=== PATIENT | male | born 1975 | race Caucasian/White ===

== ENCOUNTER 2018-10-29 09:23 | Emergency (ER) | payer OTHER ==
[2018-10-29] MEDS ORDERED: NS 0.9% 1000 ML** 1,000 ML IV ONE (09:43)
[2018-10-29] MEDS ORDERED: Famotidine IV* 10 MG/ML 2 ML (20 mg) IV SLOW PU ONE (09:44)
[2018-10-29] MEDS ORDERED: Al Hydrox/Mg Hydrox/Simet LIQ* 30 ML UDC PO ONE (09:44)
[2018-10-29] MEDS ORDERED: Ondansetron INJ* 2 MG/ML VIAL IV ONE (09:49)
[2018-10-29] MEDS ORDERED: Morphine 4 MG/ML VIAL (1 ml) 4 MG/ML VIAL IV ONE (09:49)
[2018-10-29 10:01] LABS: Hematocrit 48 % (42-52); Hemoglobin 16.7 g/dL (14.0-18.0); Mean Corpuscular HGB Conc 35 g/dL (31-36); Mean Corpuscular Hemoglobin 31 pg (27-31); Mean Corpuscular Volume 89 fL (80-94); Mean Platelet Volume 7.8 fL (7.4-10.4); Platelet Count 325 10^3/uL (150-450); Red Blood Count 5.39 10^6 /uL (4.18-5.48); Red Cell Distribution Width 14 % (10-15); White Blood Count 19.2 10^3/uL (3.5-10.8)
[2018-10-29 10:21] LABS: ABS Basophils 0.1 10^3/ul (0-0.2); ABS Eosinophils 0.2 10^3/ul (0-0.6); ABS Lymphocytes 3.1 10^3/ul (1.0-4.8); ABS Monocytes 1.7 10^3/ul (0-0.8); ABS Neutrophils 14.2 10^3/ul (1.5-7.7); Lymphocyte % 16.2 %; Nucleated Red Blood Cells % 0.1
[2018-10-29 10:24] LABS: Albumin 4.3 g/dL (3.2-5.2); Albumin/Globulin Ratio 1.5 (1-3); BUN/Creatinine Ratio 12.5 (8-20); C Reactive Protein 76.31 mg/L (<8.01); Calcium 10.1 mg/dL (8.6-10.3); EGFR African American 104.4 (>60); EGFR Non-African American 86.3 (>60); Globulin 2.8 g/dL (2-4); Magnesium 1.9 mg/dL (1.9-2.7); Potassium 3.7 mmol/L (3.5-5.0); Total Bilirubin 0.8 mg/dL (0.2-1.0); Total Protein 7.1 g/dL (6.4-8.9)
[2018-10-29] MEDS ORDERED: Iohexol 300* (CONTRAST) 10 ML SDV IV ONE (11:06)
--- NOTE | 2018-10-29 13:06 | ED ---
Abdominal Pain/Male - HPI Summary HPI Summary: This patient is a 43-year-old male who is otherwise healthy presenting to the ED with bilateral lower quadrant pain worse to the RLQ since last evening after eating. He states the pain has remained persistent. He states he is also having some diaphoresis since the discomfort. He has had Gas-X and Pepto- Bismol with no relief. He states he feels bloated with consistent ache to the bilateral lower quadrants. Denies any nausea or vomiting. Denies any constipation or diarrhea. Last BM was this morning and was loose. Denies any fevers or chills. Denies abdominal surgeries, CP or SOB. Sxs are worse with sitting upright and better with lying flat. No radiation of pain. - History of Current Complaint Chief Complaint: EDAbdPain Stated Complaint: ABD PAIN Time Seen by Provider: 10/29/18 09:43 Hx Obtained From: Patient Onset/Duration: Sudden Onset Timing: Constant Severity Initially: Moderate Severity Currently: Moderate Pain Intensity: 8 Pain Scale Used: 0-10 Numeric Location: Discrete At: RLQ Radiates: No Character: Sharp, Cramping Aggravating Factor(s): Nothing Alleviating Factor(s): Nothing Associated Signs And Symptoms: Positive: Negative - Risk Factors Testicular Torsion: Negative Cardiac Risk Factors: Negative - Allergies/Home Medications Allergies/Adverse Reactions: Allergies Allergy/AdvReac Type Severity Reaction Status Date / Time No Known Allergies Allergy Verified 10/29/18 09:42 PMH/Surg Hx/FS Hx/Imm Hx Previously Healthy: Yes Endocrine/Hematology History: Denies: Hx Diabetes Cardiovascular History: Denies: Hx Hypertension - Immunization History Hx Pertussis Vaccination: No Immunizations Up to Date: Yes Infectious Disease History: No Infectious Disease History: Denies: Traveled Outside the [place] in Last 30 Days - Social History Occupation: Employed Full-time Lives: With Family Alcohol Use: Weekly Hx Substance Use: Yes Substance Use Type: Reports: Marijuana Substance Use Comment - Amount & Last Used: daily Smoking Status (MU): Current Every Day Smoker Review of Systems Constitutional: Negative Cardiovascular: Negative Respiratory: Negative Positive: Abdominal Pain. Negative: Vomiting, Diarrhea, Nausea Genitourinary: Negative Positive: no symptoms reported, see HPI Musculoskeletal: Negative Skin: Negative All Other Systems Reviewed And Are Negative: Yes Physical Exam Triage Information Reviewed: Yes Vital Signs On Initial Exam: Initial Vitals Temp Pulse Resp BP Pulse Ox 97.6 F 77 18 146/100 99 10/29/18 09:39 10/29/18 09:39 10/29/18 09:39 10/29/18 09:39 10/29/18 09:39 Vital Signs Reviewed: Yes Appearance: Positive: Well-Appearing, Well-Nourished Skin: Positive: Warm, Skin Color Reflects Adequate Perfusion Head/Face: Positive: Normal Head/Face Inspection Eyes: Positive: EOMI, GUY, Conjunctiva Clear Neck: Positive: Supple, No Lymphadenopathy Respiratory/Lung Sounds: Positive: Clear to Auscultation, Breath Sounds Present Cardiovascular: Positive: RRR, Pulses are Symmetrical in both Upper and Lower Extremities Abdomen Description: Positive: Other: - RLQ pain Neurological: Positive: Alert, Oriented to Person Place, Time, Speech Normal Psychiatric: Positive: Affect/Mood Appropriate Diagnostics - Vital Signs Vital Signs Temp Pulse Resp BP Pulse Ox 10/29/18 10:12 66 20 141/95 99 10/29/18 10:06 62 13 99 10/29/18 09:59 22 10/29/18 09:39 97.6 F 77 18 146/100 99 - Laboratory Lab Results: Lab Results 10/29/18 10/29/18 10/29/18 Range/Units 09:52 09:52 09:52 WBC 19.2 H (3.5-10.8) 10^3/uL RBC 5.39 (4.18-5.48) 10^6 /uL Hgb 16.7 (14.0-18.0) g/dL Hct 48 (42-52) % MCV 89 (80-94) fL MCH 31 (27-31) pg MCHC 35 (31-36) g/dL RDW 14 (10-15) % Plt Count 325 (150-450) 10^3/uL MPV 7.8 (7.4-10.4) fL Neut % (Auto) 73.7 % Lymph % (Auto) 16.2 % [place] % (Auto) 8.7 % Eos % (Auto) 1.0 % Baso % (Auto) 0.4 % Absolute Neuts (auto) 14.2 H (1.5-7.7) 10^3/ul Absolute Lymphs (auto) 3.1 (1.0-4.8) 10^3/ul Absolute Monos (auto) 1.7 H (0-0.8) 10^3/ul Absolute Eos (auto) 0.2 (0-0.6) 10^3/ul Absolute Basos (auto) 0.1 (0-0.2) 10^3/ul Absolute Nucleated RBC 0.0 10^3/ul Nucleated RBC % 0.1 Sodium 138 (135-145) mmol/L Potassium 3.7 (3.5-5.0) mmol/L Chloride 109 (101-111) mmol/L Carbon Dioxide 22 (22-32) mmol/L Anion Gap 7 (2-11) mmol/L BUN 12 (6-24) mg/dL Creatinine 0.96 (0.67-1.17) mg/dL Est GFR ( Amer) 104.4 (>60) Est GFR (Non-Af Amer) 86.3 (>60) BUN/Creatinine Ratio 12.5 (8-20) Glucose 114 H (70-100) mg/dL Lactic Acid 1.1 (0.5-2.0) mmol/L Calcium 10.1 (8.6-10.3) mg/dL Magnesium 1.9 (1.9-2.7) mg/dL Total Bilirubin 0.80 (0.2-1.0) mg/dL AST 18 (13-39) U/L ALT 23 (7-52) U/L Alkaline Phosphatase 75 (34-104) U/L C-Reactive Protein 76.31 H (<8.01) mg/L Total Protein 7.1 (6.4-8.9) g/dL Albumin 4.3 (3.2-5.2) g/dL Globulin 2.8 (2-4) g/dL Albumin/Globulin Ratio 1.5 (1-3) Amylase 102 (29-103) U/L Lipase 41 (11.0-82.0) U/L Result Diagrams: 10/29/18 09:52 10/29/18 09:52 Lab Statement: Any lab studies that have been ordered have been reviewed, and results considered in the medical decision making process. Abdominal Pain Male Course/Dx - Course Course Of Treatment: During this course of treatment, the patient is evaluated for bilateral lower quadrant pain worse to the RLQ. He states symptoms began last evening immediately following dinner and have remained constant since that time. He has been taking Gas-X and Maalox without relief. He has never had this pain before. Symptoms are worse with sitting upright and better with lying flat. He has not eaten anything since yesterday due to discomfort. Labs were obtained which show a 19,000 white count with a left shift of 14,000 neutrophils. CRP is elevated at 76. With a concern for a appendicitis, CT was ordered. CT abdomen/pelvis with oral and IV contrast was obtained which shows: Focal wall thickening of the cecum just cranial to the ileocecal valve. Inflammatory changes are noted. There appears to be a diverticula noted in this area. Findings are consistent with an inflammatory process such as diverticulitis or epiploic appendigitis. Underlying neoplasm is not totally excluded. No abscesses noted. Follow-up exam suggested. Normal caliber appendix. Discussed findings with the patient and he is encouraged to follow up with [facility] in one week for further evaluation and to assure resolution of the diverticulitis. He is given ciprofloxacin 500 mg twice daily 7 days and Flagyl 3 times daily 7 days. He is also given pain control with tramadol as well as Zofran for any nausea. [facility] follow-up referral is given. - Diagnoses Differential Diagnosis/HQI/PQRI: Appendicitis Provider Diagnoses: Diverticulitis Discharge - Sign-Out/Discharge Documenting (check all that apply): Patient Departure Patient Received Moderate/Deep Sedation with Procedure: No - Discharge Plan Condition: Stable Disposition: HOME Prescriptions: Ciprofloxacin TAB* [Cipro 500 MG TAB*] 500 mg PO BID #14 tab metroNIDAZOLE [Flagyl 500 MG TAB] 500 mg PO TID #21 tab Ondansetron ODT TAB* [Zofran 4 MG Odt TAB*] 4 mg PO Q6H PRN #12 tab.odt MDD 4 PRN Reason: Nausea traMADol TAB* [Ultram*] 50 mg PO Q8H PRN #12 tab MDD 2 PRN Reason: Pain Patient Education Materials: Diverticulosis (ED), Diverticulitis Diet (ED) Referrals: No Primary Care Phys,NOPCP [Primary Care Provider] - [facility] [Outside] Additional Instructions: Eat a bland diet Drink plenty of fluids eat small meals at a time Metronidazole three times daily x 7 days Ciprofloxacin twice daily x 7 days Zofran as needed for nausea Tramadol up to three times daily for pain You may also take tylenol up to three times daily as needed for pain as well - Billing Disposition and Condition Condition: STABLE Disposition: Home
[2018-10-29 13:21] VITALS: BP 151/101
== END 2018-10-29 13:20 | disposition home or self-care (01) ==
LOC: ED 09:23
DX: K57.92 Diverticulitis of intestine, part unspecified, without perforation or abscess without bleeding (principal); F17.210 Nicotine dependence, cigarettes, uncomplicated
CPT/HCPCS: 36415; 74177; 80053; 82150; 83605; 83690; 83735; 85025; 86140; 96361; 96374; 96375; 99284; J2270; J2405; Q9967

== ENCOUNTER 2018-11-15 15:05 | Emergency (ER) | payer OTHER ==
[2018-11-15 15:11] VITALS: BP 170/111
--- NOTE | 2018-11-15 15:23 | UC ---
Dental HPI - HPI Summary HPI Summary: 46-year-old male presents with complaints of dental pain. States he has a known right lower molar with severe decay. Last night he was eating a piece of steak and heard something pop. Had sudden severe pain that has persisted since that time. States he took 400 mg of ibuprofen and tramadol 50 mg this morning with no relief from the pain. He does not have a dentist appointment scheduled at present. Denies fever, chills, trismus, facial swelling, drainage, dysphagia , or difficulty breathing. - History of Current Complaint Chief Complaint: UCDentalProblem Stated Complaint: DENTAL Time Seen by Provider: 11/15/18 15:14 Hx Obtained From: Patient Pain Intensity: 9 Dental: 1 - Severe dental decay with fracture - Allergies/Home Medications Allergies/Adverse Reactions: Allergies Allergy/AdvReac Type Severity Reaction Status Date / Time No Known Allergies Allergy Verified 11/15/18 15:11 Home Medications: Home Medications Acetaminophen 650 mg PO 11/15/18 [History] Ibuprofen 400 mg PO 11/15/18 [History] PMH/Surg Hx/FS Hx/Imm Hx Previously Healthy: Yes - Denies significant PMH - Surgical History Surgical History: None - Family History Known Family History: Positive: Non-Contributory - Social History Occupation: Employed Full-time Lives: With Family Alcohol Use: Rare Substance Use Type: Marijuana Substance Use Comment - Amount & Last Used: daily Smoking Status (MU): Light Every Day Tobacco Smoker Type: Cigarettes Household Exposure Type: Cigarettes Review of Systems All Other Systems Reviewed And Are Negative: Yes Constitutional: Negative: Fever, Chills ENT: Positive: Dental Pain Respiratory: Positive: Negative Cardiovascular: Positive: Negative Gastrointestinal: Positive: Negative Genitourinary: Positive: Negative Musculoskeletal: Positive: Negative Neurological: Positive: Negative Is Patient Immunocompromised?: No Physical Exam - Summary Physical Exam Summary: GENERAL APPEARANCE: Well developed, well nourished, alert and cooperative, and appears to be in no acute distress. HEAD: Atraumatic. Normocephalic. No facial swelling noted. THROAT: Pharynx normal. No tonsilar inflammation, swelling, exudate, or lesions. Uvula midline. Multiple dental caries noted throughout the mouth. Severe dental decay of the right third molar with a fracture of the tooth. Mild gingival erythema without induration, fluctuance, or drainage noted. No trismus. NECK: Neck supple, non-tender without lymphadenopathy. CARDIAC: Normal S1 and S2. No S3, S4 or murmurs. Rhythm is regular. There is no peripheral edema, cyanosis or pallor. Extremities are warm and well perfused. Capillary refill is less than 2 seconds. Peripheral pulses intact. LUNGS: Clear to auscultation without rales, rhonchi, wheezing or diminished breath sounds. ABDOMEN: Positive bowel sounds. Soft, nondistended, nontender. No guarding or rebound. No masses or hepatosplenomegally. MUSKULOSKELETAL: ROM intact to all extremities. No joint erythema or tenderness. Normal muscular development. Normal gait. SKIN: Skin normal color, texture and turgor with no lesions or eruptions. Triage Information Reviewed: Yes Vital Signs: Initial Vital Signs Temp 98.3 F 11/15/18 15:07 Pulse 63 11/15/18 15:07 Resp 18 11/15/18 15:07 BP 170/111 11/15/18 15:07 Pulse Ox 100 11/15/18 15:07 Vital Signs Reviewed: Yes Dental Complaint Course/Dx - Course Course Of Treatment: 46-year-old male presents with complaints of dental pain. States he has a known right lower molar with severe decay. Last night he was eating a piece of steak and heard something pop. Had sudden severe pain that has persisted since that time. States he took 400 mg of ibuprofen and tramadol 50 mg this morning with no relief from the pain. He does not have a dentist appointment scheduled at present. Denies fever, chills, trismus, facial swelling, drainage, dysphagia , or difficulty breathing. Afebrile. Hypertensive otherwise vital signs stable. Patient had severe dental decay of the right third molar with a fracture of the tooth. Mild gingival erythema without induration, fluctuance, or drainage noted. No trismus. Will start the patient on Augmentin 875 mg twice a day 10 days to treat for any infection. He is use [id number] analgesics as needed for pain. He was counseled to schedule an appointment with his dentist at the next available. Anticipatory guidance and warning symptoms were reviewed with the patient. Verbalizes understanding and agrees with plan of care. - Differential Dx/Diagnosis Differential Diagnosis/Dx: Dental Abscess, Dental Caries, Fractured Tooth, Odontogenic Pain, Peridontic Disease Provider Diagnosis: Pain, dental, Elevated blood pressure reading Discharge - Sign-Out/Discharge Documenting (check all that apply): Patient Departure All imaging exams completed and their final reports reviewed: No Studies - Discharge Plan Condition: Stable Disposition: HOME Prescriptions: Amoxicillin/Clavulanate TAB* [Augmentin TAB 875*] 875 mg PO BID #20 tab Patient Education Materials: Toothache (ED) Referrals: No Primary Care Phys,NOPCP [Primary Care Provider] - [facility] [Outside] - 2 Weeks Additional Instructions: Start Augmentin 8785 1 tab twice a day for 10 days. Be sure to complete the entire course even if feeling better. Take acetaminophen (Tylenol), ibuprofen (Advil, Motrin), or naproxen (Aleve) according to directions as needed for pain. Be sure to rinse your mouth out with a warm salt water solution after every time you eat to remove any debris. Make an appointment with your dentist at next available appointment. Your blood pressure was very elevated in the clinic today. It is recommended that you have this rechecked within 2 weeks. You can follow up with your primary care provider or at the [facility]. Seek immediate medical attention in the emergency room if you develop fever greater than 100.5 F, you are unable to open of close your mouth, are unable to swallow, have difficulty breathing, or any worsening of symptoms. - Billing Disposition and Condition Condition: STABLE Disposition: Home - Attestation Statements Provider Attestation: I was available for consult. This patient was seen by the TEODORO. The patient was not presented to, seen by, or examined by me. -Keith
== END 2018-11-15 15:30 | disposition home or self-care (01) ==
LOC: UCEAST 15:05
DX: S02.5XXA Fracture of tooth (traumatic), initial encounter for closed fracture (principal); X58.XXXA Exposure to other specified factors, initial encounter; Y92.9 Unspecified place or not applicable; R03.0 Elevated blood-pressure reading, without diagnosis of hypertension; F17.210 Nicotine dependence, cigarettes, uncomplicated
CPT/HCPCS: 99212; G0463